=== PATIENT | female | born 1945 | race Caucasian/White ===

== ENCOUNTER → 2018-03-23 11:20 | Outpatient (CLI) | payer MEDICARE, OTHER, SELFPAY ==
--- NOTE | 2018-03-23 11:24 | DI.MRI.S_ITS ---
PROCEDURE: MR CERVICAL SPINE WO CON INDICATIONS: Cervical pain with Radiculopathy L arm TECHNIQUE: Noncontrast sagittal T1 spin echo and T2 fast spin echo, sagittal STIR, foraminal oblique sagittal T2 fast spin echo, and axial gradient echo or T2 fast spin echo through the cervical spine. COMPARISON: None. FINDINGS: Image quality: Excellent. Alignment and Curvature: There is trace retrolisthesis of C3 on C4, C5-C6. Bone Marrow: Marrow demonstrates normal overall signal. Trace reactive marrow changes at C5-6. Spinal Cord: Visualized spinal cord has normal size and signal. No cerebellar tonsillar herniation. Paraspinous Soft Tissues: No paravertebral masses. Prevertebral soft tissues are normal in thickness. Moderate dessication is present throughout the cervical spine. C2-C3: No disc bulge, spinal stenosis or foraminal narrowing. C3-C4: Mild disc bulge with mild to moderate spinal stenosis. Moderate right foraminal narrowing. Uncovertebral hypertrophy. C4-C5: Mild disc bulge with posterior central protrusion. Moderate spinal stenosis. Severe right and moderate left foraminal narrowing. Uncovertebral hypertrophy. C5-C6: Mild disc bulge with moderate spinal stenosis. Moderate bilateral foraminal narrowing. Uncovertebral hypertrophy. C6-C7: Mild disc bulge with mild to moderate spinal stenosis. Mild to moderate bilateral foraminal narrowing. Uncovertebral hypertrophy. C7-T1: No disc bulge, spinal stenosis or foraminal narrowing. IMPRESSION: 1. Multilevel degenerative changes. 2. Multilevel disc bulges with protrusion at C4-5. 3. Multilevel spinal stenosis, most severe at C3-4, C4-5, C5-6 secondary to disc bulges. 4. Multilevel foraminal narrowing, most severe at C4-5, secondary to uncovertebral arthropathy. Dictated by: Kamryn Borja M.D. on 03/23/2018 at 14:47 Approved by: Kamryn Borja M.D. on 03/23/2018 at 15:07
== END ==
PROVIDERS: PCP Physician Assistant; Visit Provider Physician Assistant
DX: M47.22 Other spondylosis with radiculopathy, cervical region (principal); M50.11 Cervical disc disorder with radiculopathy, high cervical region; M48.02 Spinal stenosis, cervical region; R20.2 Paresthesia of skin; M62.838 Other muscle spasm
CPT/HCPCS: 72141

== ENCOUNTER 2018-03-28 12:24 | Emergency (ER) | payer MEDICARE, OTHER, SELFPAY ==
[2018-03-28 12:42] VITALS: BP 153/66; PULSE 59; RESP 12; TEMP 36.7; O2SAT 97; BMI 22.4
--- NOTE | 2018-03-28 13:49 | ED.NEUROSD ---
HPI - Neuro Symptoms/Deficit General Chief Complaint: Neuro Symptoms/Deficit Stated Complaint: states buldging disc, left arm pain Time Seen by Provider: 03/28/18 13:01 Source: patient Mode of arrival: ambulatory Limitations: no limitations History of Present Illness HPI Narrative: Patient is a 73-year-old female who presents with acute on chronic neck pain. She actually had an MRI 5 days ago which showed mild disc bulging at multiple levels. She has chronic ongoing left arm weakness she usually gets these tingling sensations down her left arm. She has not had any fever. She just got a referral yesterday by her PCP [place]. Today she is here because her pain is out of control. She takes oxycodone multiple times a day but it is not working she took some Aleve last night as well. She says that she is on gabapentin. Onset (ago): unknown On Anticoagulants: Yes (ASA 81 mg qd) Related Data Home Medications Medication Instructions Recorded Confirmed Calcium 500 + D 150 mg PO QDAY #0 01/21/16 03/28/18 vitamin B complex 1 cap PO QWEEK #0 01/21/16 03/28/18 [GLUCO/CHOND/TURM/MSM] 1 tab PO DAILY #0 03/21/17 03/28/18 aspirin 81 mg PO QPM #0 03/21/17 03/28/18 ginkgo biloba 1 tab PO DAILY #0 03/21/17 03/28/18 carvedilol 3.125 mg tablet 3.125 mg PO BID tab 11/03/17 03/28/18 multivitamin tablet 1 tab PO DAILY 11/03/17 03/28/18 vitamin E mixed 400 unit capsule 400 unit PO DAILY cap 11/03/17 03/28/18 biotin 1,000 mcg chewable tablet 1,000 mcg PO 1200 03/21/18 03/28/18 atorvastatin [Lipitor] 10 mg PO BEDTIME 03/28/18 03/28/18 estradiol 0.25 mg PO DAILY 03/28/18 03/28/18 naproxen sodium [Aleve] 1 dose PO PRN PRN 03/28/18 03/28/18 tramadol 50 - 100 mg PO TID PRN 03/28/18 03/28/18 Previous Rx's Medication Instructions Recorded varicella-zoster glycoE vacc-[id number] 50 mcg IM ONCE #1 each 03/21/18 adj(PF) 50 mcg/0.5 mL IM susp, kit gabapentin 300 mg capsule 300 mg PO TID #90 cap 03/23/18 oxycodone-acetaminophen 5 mg-325 1 tab PO Q4-6H PRN #45 tab 03/26/18 mg tablet lidocaine 1 patch TOP .q24 #15 each 03/28/18 prednisone 40 mg PO DAILY #10 tab 03/28/18 Allergies Allergy/AdvReac Type Severity Reaction Status Date / Time morphine [MORPHINE] Allergy Severe VIOLENT HAs Verified 03/28/18 12:48 citalopram [CITALOPRAM] AdvReac Unknown PROLONGED Verified 03/28/18 12:48 QT INTERVAL Review of Systems Review of Systems GENERAL: Denies chills, fatigue, malaise, fever, sweats, travel HEENT: Denies sinus pain, ear pain, sore throat, difficulty swallowing, neck pain RESPIRATORY: Denies dyspnea, cough, wheezing, hemoptysis, sputum. CARDIOVASCULAR: Denies chest pain, palpitations, orthopnea, edema GASTROINTESTINAL: Denies nausea, vomiting, abdominal pain, diarrhea, constipation, melena. : Denies dysuria, frequency, incontinence, hematuria, urinary retention, flank pain. MUSCULOSKELETAL: Denies weakness, joint pain, or bony pain SKIN: No rash, no erythema, no pruritus NEUROLOGIC: Left arm weakness, tingling down left arm, see HPI PSYCHIATRIC: No concerning psychosocial issues. 12 point review of systems is negative except for those stated above and HPI PFSH Social History Smoking Status: Former smoker Tobacco: How many years used: 5 second hand exposure: No alcohol intake: current (two glasses of wine, once a week) substance use type: does not use Exam Initial Vital Signs Initial Vital Signs: Vital Signs Temperature 98.1 F 03/28/18 12:42 Pulse Rate 59 L 03/28/18 12:42 Respiratory Rate 12 03/28/18 12:42 Blood Pressure 153/66 H 03/28/18 12:42 Pulse Oximetry 97 03/28/18 12:42 GENERAL: Well-appearing, well-nourished and in no acute distress. HEENT: Head atraumatic,EOMI, pupils reactive CARDIOVASCULAR: Regular rate and rhythm without murmurs, rubs or gallops. RESPIRATORY: Breath sounds equal bilaterally, no wheezes rales or rhonchi. ABDOMEN: Soft, nontender. Normoactive bowel sounds all 4 quadrants. No guarding or rebound. EXTREMITIES: Normal range of motion, no clubbing or edema. Neurovascularly intact NEUROLOGICAL: Alert and oriented x4.Normal gait and speech. Cranial nerves II through XII grossly intact. Left arm weakness, radial median and ulnar nerves are intact. 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 Sensation is intact moving on hand and fingers and wrist without problem SKIN: Warm, dry, no laceration, no petechiae, no rashes or lesions. Course Orders Ordered: Discontinued Medications Hydromorphone HCl (Dilaudid) 1 mg SUBCUT Q4H PRN PRN Reason: Pain, Severe (7-10) Last Admin: 03/28/18 14:02 Dose: 1 mg Vital Signs - 8 hr 03/28/18 12:42 03/28/18 15:12 Temperature 98.1 F Pulse Rate 59 L Respiratory Rate 12 Blood Pressure 153/66 H 146/84 H Pulse Oximetry 97 MDM - Neuro Symptoms/Deficit Imaging Data MRI spine: Radiologist's impression: PROCEDURE: MR CERVICAL SPINE WO CON INDICATIONS: Cervical pain with Radiculopathy L arm TECHNIQUE: Noncontrast sagittal T1 spin echo and T2 fast spin echo, sagittal STIR, foraminal oblique sagittal T2 fast spin echo, and axial gradient echo or T2 fast spin echo through the cervical spine. COMPARISON: None. FINDINGS: Image quality: Excellent. Alignment and Curvature: There is trace retrolisthesis of C3 on C4, C5-C6. Bone Marrow: Marrow demonstrates normal overall signal. Trace reactive marrow changes at C5-6. Spinal Cord: Visualized spinal cord has normal size and signal. No cerebellar tonsillar herniation. Paraspinous Soft Tissues: No paravertebral masses. Prevertebral soft tissues are normal in thickness. Moderate dessication is present throughout the cervical spine. C2-C3: No disc bulge, spinal stenosis or foraminal narrowing. C3-C4: Mild disc bulge with mild to moderate spinal stenosis. Moderate right foraminal narrowing. Uncovertebral hypertrophy. C4-C5: Mild disc bulge with posterior central protrusion. Moderate spinal stenosis. Severe right and moderate left foraminal narrowing. Uncovertebral hypertrophy. C5-C6: Mild disc bulge with moderate spinal stenosis. Moderate bilateral foraminal narrowing. Uncovertebral hypertrophy. C6-C7: Mild disc bulge with mild to moderate spinal stenosis. Mild to moderate bilateral foraminal narrowing. Uncovertebral hypertrophy. C7-T1: No disc bulge, spinal stenosis or foraminal narrowing. IMPRESSION: 1. Multilevel degenerative changes. 2. Multilevel disc bulges with protrusion at C4-5. 3. Multilevel spinal stenosis, most severe at C3-4, C4-5, C5-6 secondary to disc bulges. 4. Multilevel foraminal narrowing, most severe at C4-5, secondary to uncovertebral arthropathy. Dictated by: Kamryn Borja M.D. on 03/23/2018 at 14:47 Approved by: Kamryn Borja M.D. on 03/23/2018 at 15:07 MDM Narrative Medical decision making narrative: Patient recently had an MRI shows mild disc bulging and some spinal stenosis. She has chronically left week arm which is unchanged according to her caregiver. Her pain is better after Dilaudid. She already has a referral into neuro surgery. At this time will try a short course of prednisone and lidocaine patches. She is already taking oxycodone more frequently than it is prescribed. Discharge Plan Departure Patient Disposition: Home Clinical Impression: Cervical radiculopathy Discharge Date/Time: 03/28/18 15:12 Interventions: ED Discharge Assessment Last Done: 03/28/18 15:12 Instructions: DI for Cervical Radiculopathy Activity Restrictions/Additional Instructions: *You have been diagnosed with cervical radiculopathy *What to do: Follow up with Neuro surgery in every *Continue to take medications as directed: FAXED TO [email or web address] [place] Lidocaine patch cut to size needed only wear for 12 hr at a time and then remove Prednisone 40 mg once a day for 5 days and then stop *Follow up with your primary care provider in 2-3 days *Return to ER if you should have FEVER, INCREASING WEAKNESS, WORSENING PAIN CHANGES IN BOWEL OR BLADDER HABITS or any new, worsening or concerning symptoms Prescriptions: New prednisone 20 mg tablet 40 mg PO DAILY Qty: 10 RF: 0 lidocaine 5 % adhesive patch,medicated 1 patch TOP .q24 Qty: 15 RF: 0 No Action biotin 1,000 mcg tablet,chewable 1,000 mcg PO 1200 RF: 0 varicella-zoster gE-AS01B (PF) [Shingrix (PF)] 50 mcg/0.5 mL suspension for reconstitution 50 mcg IM ONCE Qty: 1 RF: 1 Calcium 500 + D 150 mg PO QDAY Qty: 0 RF: 0 vitamin B complex Tablet Extended Release 1 cap PO QWEEK Qty: 0 RF: 0 [GLUCO/CHOND/TURM/MSM] 1 tab PO DAILY Qty: 0 RF: 0 ginkgo biloba 1 tab PO DAILY Qty: 0 RF: 0 aspirin 81 MG tablet,delayed release (DR/EC) 81 mg PO QPM Qty: 0 RF: 0 gabapentin 300 mg capsule 300 mg PO TID Qty: 90 RF: 1 oxycodone-acetaminophen 5-325 mg tablet 1 tab PO Q4-6H PRN (Reason: pain) Qty: 45 RF: 0 atorvastatin [Lipitor] 20 mg tablet 10 mg PO BEDTIME RF: 0 tramadol 50 mg tablet 50 - 100 mg PO TID PRN (Reason: pain) RF: 0 estradiol 0.5 MG tablet 0.25 mg PO DAILY RF: 0 naproxen sodium [Aleve] 220 mg Tablet 1 dose PO PRN PRN (Reason: pain) RF: 0 carvedilol 3.125 mg tablet 3.125 mg PO BID RF: 0 multivitamin tablet 1 tab PO DAILY RF: 0 vitamin E mixed 400 unit capsule 400 unit PO DAILY RF: 0 Referrals: Cris Heredia PA-C [Primary Care Provider] -
[2018-03-28] MEDS: HYDROMORPHONE 2 MG INJ 1 MG SUBCUT (14:02)
--- NOTE | 2018-03-28 15:10 | PC.NURSE ---
acute on chronic LUE pain, shooting, recent diag of cervical ridiculopathy, no recent injury, neuro exam unremarkable, c/o no relief from PRN pain medications
[2018-03-28 15:12] VITALS: BP 146/84
== END 2018-03-28 15:12 | disposition home or self-care (01) ==
PROVIDERS: Emergency Provider Emergency Medicine; PCP Physician Assistant
DX: M54.12 Radiculopathy, cervical region (principal)
CPT/HCPCS: 99282; J1170

== ENCOUNTER → 2018-06-19 10:28 | Outpatient (CLI) | payer MEDICARE, OTHER, SELFPAY ==
--- NOTE | 2018-06-19 10:31 | DI.MG.S_ITS ---
BILATERAL DIGITAL SCREENING MAMMOGRAM 3D/2D WITH CAD: 06/19/2018 CLINICAL: Routine screening. Comparison is made to exams dated: 06/02/2017 mammogram, 04/07/2016 mammogram, and 03/26/2015 mammogram - [facility]. The tissue of both breasts is heterogeneously dense. This may lower the sensitivity of mammography. Current study was also evaluated with a Computer Aided Detection (CAD) system. No significant masses, calcifications, or other findings are seen in either breast. There is a linear scar marker overlying the upper right breast. There has been no significant interval change. IMPRESSION: NEGATIVE There is no mammographic evidence of malignancy. A 1 year screening mammogram is recommended. This exam was interpreted at Station ID: [id number]. NOTE: For mammograms, a report in lay terms will be sent to the patient. Approximately 15% of breast malignancies will not be visualized mammographically. In the management of a palpable breast mass, a negative mammogram must not discourage biopsy of a clinically suspicious lesion. Electronically Signed By: Johnny Le M.D. ecl/:06/19/2018 17:42:21 letter sent: Normal Exam ACR BI-RADS Category 1: Negative [id number]
== END ==
PROVIDERS: PCP Physician Assistant; Visit Provider Physician Assistant
DX: Z12.31 Encounter for screening mammogram for malignant neoplasm of breast (principal)
CPT/HCPCS: 77063; 77067

== ENCOUNTER → 2021-05-28 11:03 | Outpatient (CLI) | payer MEDICARE, OTHER, SELFPAY ==
--- NOTE | 2021-05-28 | DI.RAD.S_ITS ---
PROCEDURE: XR DEXA AXIAL SKELETON INDICATIONS: Encounter for screening for osteoporosis COMPARISON: None. FINDINGS: This blank DEXA report has been sent in error by the PACS system. The correct and complete report will be forthcoming in 1-2 days. Thank you for your patience and understanding. Dictated by: Marcela Thomas MD, PhD on 05/28/2021 at 17:09 Approved by: Marcela Thomas MD, PhD on 05/28/2021 at 17:09
== END ==
PROVIDERS: PCP Physician Assistant; Referring Provider Physician Assistant; Visit Provider Physician Assistant
DX: Z13.820 Encounter for screening for osteoporosis; M85.852 Other specified disorders of bone density and structure, left thigh; Z78.0 Asymptomatic menopausal state; Z90.722 Acquired absence of ovaries, bilateral; Z87.891 Personal history of nicotine dependence
CPT/HCPCS: 77080

== ENCOUNTER → 2021-10-20 13:13 | Outpatient (CLI) | payer MEDICARE, OTHER, SELFPAY ==
--- NOTE | 2021-10-20 | DI.RAD.S_ITS ---
PROCEDURE: FL BARIUM SWALLOW INDICATIONS: Dysphagia, Heartburn COMPARISON: None. FINDINGS: Function: There is normal esophageal peristalsis. Gastroesophageal reflux noted which occurred without provocative maneuvers. Morphology: Air-contrast images demonstrate normal mucosal morphology. Persistent, focal, smooth eccentric narrowing in the upper thoracic esophagus Prominent B ring in the distal esophagus which impedes passage of 13 millimeter calibrated barium tablet. Single contrast views show no extrinsic mass effects, or diverticula. Limited images of the stomach demonstrate normal appearance. IMPRESSION: Focal, persistent, smooth eccentric narrowing of the upper thoracic esophagus which does not impede passage of 13 millimeter barium tablet. Recommend gastroenterology consultation for endoscopic evaluation. Prominent B ring in the distal esophagus which impedes passage of 13 millimeter barium tablet. Recommend gastroenterology consultation for endoscopy and potential biopsy. Dictated by: Marcela Thomas MD, PhD on 10/20/2021 at 15:47 Approved by: Marcela Thomas MD, PhD on 10/20/2021 at 15:52
== END ==
PROVIDERS: PCP Physician Assistant; Referring Provider Internal Medicine Gastroenterology; Visit Provider Internal Medicine Gastroenterology
DX: K22.2 Esophageal obstruction (principal); K21.9 Gastro-esophageal reflux disease without esophagitis; R13.10 Dysphagia, unspecified; R12 Heartburn
CPT/HCPCS: 74220

== ENCOUNTER → 2021-11-19 10:00 | Outpatient (CLI) | payer MEDICARE, OTHER, SELFPAY ==
[2021-11-19 11:16] LABS: COVID19 -Nasal RAPID Negative (Negative)
== END ==
PROVIDERS: PCP Physician Assistant; Visit Provider Surgery
DX: Z20.822 Contact with and (suspected) exposure to COVID-19 (principal); Z01.812 Encounter for preprocedural laboratory examination
CPT/HCPCS: 87635; C9803

== ENCOUNTER 2021-11-22 09:53 | Day surgery (SDC) | payer MEDICARE, OTHER, SELFPAY ==
[2021-11-22] VITALS (7 sets, daily range): BP systolic 103–176; BP diastolic 36–70; PULSE 51–65; RESP 13–21; TEMP 36–36.8; O2SAT 94–99; BMI 22.8
--- NOTE | 2021-11-22 | PATH_ITS ---
[facility] Accession Number: [id number] . 01 Material submitted: . PART A: gastrointestinal site - GASTRIC BODY ULCER PART B: esophagus, E-G Junction - GE JUNCTION . 01 Diagnosis: A. Stomach, Body Ulcer, Biopsy: Body type mucosa with mild chronic gastritis and reactive changes suggestive of nearby erosion. Negative for Helicobacter by immunohistochemistry. Negative for intestinal metaplasia. Negative for dysplasia and malignancy. . B. 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 Negative for dysplasia and malignancy. [facility] 11/25/2021 1229 Local . 01 Electronically signed: . Macey Duran MD, Pathologist NPI- [id number] . 01 Gross description: . Part A: GASTRIC BODY ULCER: Received in formalin are 2 fragment(s) of patel, soft tissue measuring 0.2 x 0.2 x 0.1 cm to 0.1 x 0.1 x 0.1 cm submitted entirely in 1 cassette(s) Part B: GE JUNCTION: Received in formalin are 3 fragment(s) of patel, soft tissue measuring 0.3 x 0.2 x 0.1 cm to 0.2 x 0.1 x 0.1 cm submitted entirely in 1 cassette(s) /CPE 11/23/2021 0501 Local . 01 Microscopic: . A. An immunohistochemical stain was performed to evaluate for Helicobacter organisms and is negative. The control stain showed appropriate reactivity. * This test was developed and its performance characteristics determined by [facility] [facility]. It has not been cleared or approved by the U.S. Food and Drug Administration. The FDA has determined that such clearance or approval is not necessary. This test is used for clinical purposes. It should not be regarded as investigational or for research. . 01 Pathologist provided ICD-10: K22.70 . 01 CPT . 952433, 130139, R03566 Specimen Comment: A courtesy copy of this report has been sent to [phone] Performed at: [address] [id number] MD [place]ico Vega MD Phone: [phone]
[2021-11-22] MEDS: SODIUM CHLORIDE 0.9% 1,000 ML 84 ML IV (10:26)
--- NOTE | 2021-11-22 10:59 | PM.HP.1 ---
History of Present Illness History of Present Illness Date Patient Seen: 11/22/21 Time Patient Seen: 10:59 Chief complaint: SDC Narrative: I reviewed my recent clinic note. Reviewed the barium swallow findings. No significant changes since then. Patient History Family & Social History Social History: household members none Tobacco & Substance use: Smoking Status Former smoker alcohol intake current alcohol intake frequency 0-2 drinks per day Substance Use Type does not use Meds Home Medications and Allergies Home Medications Medication Instructions Recorded Confirmed Type Calcium 500 + D 150 mg PO QDAY ##0 01/21/16 11/22/21 History vitamin B complex 1 cap PO QWEEK ##0 01/21/16 03/28/18 History [GLUCO/CHOND/TURM/MSM] 1 tab PO DAILY ##0 03/21/17 11/22/21 History multivitamin 1 tab PO DAILY 11/03/17 11/22/21 History vitamin E mixed 400 unit capsule 400 unit PO DAILY 11/03/17 04/08/19 History varicella-zoster glycoE vacc-AS01B 50 mcg IM ONCE #1 ea 03/21/18 11/22/21 Rx adj(PF) 50 mcg/0.5 mL IM susp, kit (Shingrix (PF)) estradiol 0.5 mg tablet 0.25 mg PO DAILY #45 tabs 03/19/19 11/22/21 Rx atorvastatin 20 mg tablet (Lipitor) 10 mg PO BEDTIME #90 tabs 04/08/19 11/22/21 Rx diltiazem HCl 120 mg 120 mg PO DAILY #90 caps 04/15/19 11/22/21 Rx capsule,extended release 24 hr Allergies Allergy/AdvReac Type Severity Reaction Status Date / Time morphine [MORPHINE] Allergy Severe VIOLENT HAs Verified 11/22/21 10:02 citalopram [CITALOPRAM] AdvReac Unknown PROLONGED Verified 11/22/21 10:02 QT INTERVAL Review of Systems Review of Systems ROS: Yes All systems reviewed with the patient and are negative except as otherwise documented Exam Vital Signs (past 8 hours): - 11/22/21 10:16 Temperature 98.3 F Pulse Rate 59 L Respiratory Rate 16 Blood Pressure 176/70 H Pulse Oximetry 98 Oxygen Delivery Method Room Air Oxygen Delivery Method Room Air Const General: cooperative HENMT Head: normal to inspection Eyes General: appearance normal, both eyes and all related structures Neck Neck: normal visual inspection Chest Chest: normal inspection of the chest Resp Effort & Inspection: normal respiratory effort Cardio Rate: regular rate GI Inspection: normal to inspection Skin General: no rashes or lesions noted Neuro General: patient alert and patient awake Extrem General: normal to inspection and no pedal edema Psych Appearance: grossly normal Assessment & Plan Assessment & Plan narrative: 76-year-old female with an abnormal barium swallow. She has 6 months of intermittent dysphagia and heartburn. She is responding nicely to an H2 receptor antagonist. Diagnostic and potentially therapeutic EGD is pursued today. Time Spent With Patient Critical Care time: I spent a total of [] minutes of critical care time on this patient's care today; this time is exclusive of procedural time.
--- NOTE | 2021-11-22 11:01 | PM.PREOP ---
Pre-operative Note COVID-19 COVID-19 status: Negative Result date/Date tested (Pos, Neg/Pending): 11/19/21 Criteria for continued procedure: Possibility delay results in more complex future surgery or treatment Interval Note History & Physical reviewed/Exam performed by Physician: Yes Changes to H&P: No ASA Class (for procedural sedation): II
--- NOTE | 2021-11-22 11:30 | PM.OP.EGD ---
Operative Date/Time/Diagnoses Date of procedure: 11/22/21 Time of procedure: 11:30 Pre-op diagnosis: Dysphagia abnormal barium esophagram Post-op diagnosis: same Procedure & Clinicians Study performed: EGD with biopsies and balloon dilatation Same procedure as scheduled: Yes Indications: Dysphagia and an abnormal barium esophagram Surgeon: Jairo Sosa Procedure Notes SCOAP/Timeout: Done Procedure in detail: After the risks and benefits were explained, written and verbal informed consent was obtained. The patient was brought into the procedure room and placed into the left lateral decubitus position. Please see nurse recording studio internship notes for sedation details. The scope was introduced into the mouth through the bite block and advanced under direct visualization to the 2nd portion of the duodenum. The scope was slowly withdrawn carefully examining the mucosa for any defects or lesions. Retroflexed views were accomplished in the stomach. The stomach was decompressed, the scope was then removed from the patient who tolerated the procedure well. Sedation minutes: 24 Complications: none Impression: 1. Duodenum: This was visually normal from the bulb through the 2nd portion. 2. Stomach: No evidence of any outlet obstruction. The patient had some subtle erosive features in the distal body proximal antrum. There was 1 superficial linear ulcer that perhaps measured about 7-8 mm in length 1-2 mm in width located in the distal body along the lesser curve. I suspect this is an aspirin induced mucosal injury but took biopsies from the edge of the ulcer for exclusion of Helicobacter or other pathology. Otherwise retroflexed views of the LES were unremarkable. 3. Esophagus: The squamocolumnar junction generally seem to correlate with the top of the gastric folds. The GEJ was at roughly 35 cm from the incisors and the diaphragmatic pinchcock was at about 37 cm from the incisors. There were some subtle erosive features identified. This would be consistent with LA grade B erosive esophagitis. When I 1st approached the GE junction there was obvious mild stenosis. The diameter of the GE junction was roughly the diameter of the scope. We were just barely able to advance through into stomach. I therefore elected to perform balloon dilatation of the GE junction using a 12 to 15 mm balloon over the guidewire. We held the balloon at the 12 mm setting for roughly 45 seconds. The balloon was held at the 13.5 and 15 mm setting for about a minute each. Following the dilatation there was an obvious mild rent in a couple of locations at the mild stenosis at GE junction consistent with effective dilatation. I additionally elected to pursue disruptive biopsies through this location with cold forceps. The specimens were sent for pathology review. The remainder of the esophagus was visually unremarkable with the exception of a long inlet patch just below the UES. Endoscopic diagnosis 1. Small sliding hiatal hernia 2. LA grade B erosive esophagitis 3. 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 Superficial small gastric ulceration-biopsied Post-procedure Plan for aftercare: 1. Await histopathology. 2. Patient is encouraged to initiate a more proactive anti-reflux approach with daily Pepcid. 3. Follow up in GI clinic in approximately 6 weeks to review response to today's interventions. Disposition: PACU
--- NOTE | 2021-11-22 12:08 | SUR.PHASEII ---
pt given discharge instructions. pt states she understands discharge instructions. Pt to be discharged with her friend.
== END 2021-11-22 12:10 | disposition home or self-care (01) ==
PROVIDERS: PCP Physician Assistant; Referring Provider Internal Medicine Gastroenterology; Visit Provider Internal Medicine Gastroenterology
PROC: 0DJ08ZZ Inspection of Upper Intestinal Tract, Via Natural or Artificial Opening Endoscopic (ICD-10-PCS; CPT 43235; principal; 2021-11-22 10:30)
DX: R13.10 Dysphagia, unspecified (principal); K22.2 Esophageal obstruction; K44.9 Diaphragmatic hernia without obstruction or gangrene; K25.9 Gastric ulcer, unspecified as acute or chronic, without hemorrhage or perforation; K20.90 Esophagitis, unspecified without bleeding; K29.50 Unspecified chronic gastritis without bleeding; K22.70 Barrett's esophagus without dysplasia
CPT/HCPCS: 43249; 43239; J2704

== ENCOUNTER 2022-02-21 10:26 | Day surgery (SDC) | payer MEDICARE, OTHER, SELFPAY ==
--- NOTE | 2022-02-21 | PATH_ITS ---
[facility] Accession Number: [id number] . 01 Material submitted: . PART A: gastrointestinal site - GASTRIC BODY PART B: esophagus, E-G Junction - GE JUNCTION . 01 Diagnosis: A. Gastric Body: Portions of gastric body-type mucosa with mild chronic gastritis. Negative for Helicobacter organisms by immunohistochemistry. Negative for intestinal metaplasia. Negative for dysplasia or malignancy. . B. Gastroesophageal Junction: Columnar mucosa with involvement by specialized intestinal metaplasia, consistent with Macario's esophagus. Negative for dysplasia or malignancy. No squamous mucosa identified for evaluation. MRV 02/24/2022 1708 Local . 01 Electronically signed: . Daina Banks MD, Pathologist NPI- [id number] . 01 Gross description: . Part A: GASTRIC BODY: Received in formalin are 2 fragment(s) of patel, soft tissue measuring 0.1 x 0.1 x 0.1 cm to 0.2 x 0.2 x 0.1 cm submitted entirely in 1 cassette(s) Part B: GE JUNCTION: Received in formalin is 1 fragment(s) of patel, soft tissue measuring 0.1 x 0.1 x 0.1 cm submitted entirely in 1 cassette(s) /VON 02/22/2022 2226 Local . 01 Microscopic: . A. An immunohistochemical stain was performed to evaluate for Helicobacter organisms and is negative. The control stain showed appropriate reactivity. . * This test was developed and its performance characteristics determined by [facility]. It has not been cleared or approved by the U.S. Food and Drug Administration. The FDA has determined that such clearance or approval is not necessary. This test is used for clinical purposes. It should not be regarded as investigational or for research. . 01 Pathologist provided ICD-10: K29.70, K22.70 . 01 CPT . 415356, 975824, [id number] Specimen Comment: A courtesy copy of this report has been sent to [phone] Performed at: 01 [facility] [address] [place] [address] [id number] MD Chico Vega MD Phone: [phone]
--- NOTE | 2022-02-21 10:53 | PM.HP.1 ---
History of Present Illness History of Present Illness Date Patient Seen: 02/21/22 Time Patient Seen: 10:53 Chief complaint: SDC Narrative: I reviewed my recent office note from December. She denies dysphagia. Doing well with the Pepcid. Patient History Family & Social History Social History: household members none Tobacco & Substance use: Smoking Status Former smoker alcohol intake current alcohol intake frequency 0-2 drinks per day Substance Use Type does not use Meds Home Medications and Allergies Home Medications Medication Instructions Recorded Confirmed Type Calcium 500 + D 150 mg PO QDAY ##0 01/21/16 02/21/22 History [GLUCO/CHOND/TURM/MSM] 1 tab PO DAILY ##0 03/21/17 02/21/22 History multivitamin 1 tab PO DAILY 11/03/17 02/21/22 History vitamin E mixed 400 unit capsule 400 unit PO DAILY 11/03/17 04/08/19 History varicella-zoster glycoE [id number] 50 mcg IM ONCE #1 ea 03/21/18 11/22/21 Rx adj(PF) 50 mcg/0.5 mL IM susp, kit (Shingrix (PF)) estradiol 0.5 mg tablet 0.25 mg PO DAILY #45 tabs 03/19/19 02/21/22 Rx atorvastatin 20 mg tablet (Lipitor) 10 mg PO BEDTIME #90 tabs 04/08/19 02/21/22 Rx diltiazem HCl 120 mg 120 mg PO DAILY #90 caps 04/15/19 02/21/22 Rx capsule,extended release 24 hr Allergies Allergy/AdvReac Type Severity Reaction Status Date / Time morphine [MORPHINE] Allergy Severe VIOLENT HAs Verified 02/21/22 10:44 citalopram [CITALOPRAM] AdvReac Unknown PROLONGED Verified 02/21/22 10:44 QT INTERVAL Review of Systems Review of Systems ROS: Yes All systems reviewed with the patient and are negative except as otherwise documented Exam Const General: cooperative HENMT Head: normal to inspection Eyes General: appearance normal, both eyes and all related structures Neck Neck: normal visual inspection Chest Chest: normal inspection of the chest Resp Effort & Inspection: normal respiratory effort Cardio Rate: regular rate GI Inspection: normal to inspection Skin General: no rashes or lesions noted Neuro General: patient alert and patient awake Extrem General: normal to inspection and no pedal edema Psych Appearance: grossly normal Assessment & Plan Assessment & Plan narrative: 77-year-old female with a history of nondysplastic Macario's, erosive esophagitis, dysphagia. Overall dramatically improved. Surveillance EGD for repeat biopsies and possible repeat dilatation is pursued today. Time Spent With Patient Critical Care time: I spent a total of [] minutes of critical care time on this patient's care today; this time is exclusive of procedural time.
--- NOTE | 2022-02-21 10:55 | PM.PREOP ---
Pre-operative Note COVID-19 COVID-19 status: Negative Result date/Date tested (Pos, Neg/Pending): 02/21/22 Criteria for continued procedure: Possibility delay results in more complex future surgery or treatment Interval Note History & Physical reviewed/Exam performed by Physician: Yes Changes to H&P: Yes ASA Class (for procedural sedation): II
[2022-02-21 11:00] VITALS: BP 172/75; PULSE 70; RESP 16; TEMP 36.6; O2SAT 99; BMI 23.0
[2022-02-21] MEDS: LACTATED RINGERS 1,000 ML 42 ML IV (11:07)
[2022-02-21 11:24] LABS: COVID19 -Nasal RAPID Negative (Negative)
--- NOTE | 2022-02-21 11:54 | P.OP.EGD_ITS ---
Operative Date/Time/Diagnoses Date of procedure: 02/21/22 Time of procedure: 11:54 Pre-op diagnosis: Esophagitis, Barretts, history of dysphagia Post-op diagnosis: same Procedure & Clinicians Study performed: EGD with balloon dilatation and biopsies Same procedure as scheduled: Yes Indications: Esophagitis, Barretts, history of dysphagia Surgeon: Jairo Sosa Procedure Notes SCOAP/Timeout: Done Procedure in detail: After the risks and benefits were explained, written and verbal informed consent was obtained. The patient was brought into the procedure room and placed into the left lateral decubitus position. Please see nurse packaging assembler notes for sedation details. The scope was introduced into the mouth through the bite block and advanced under direct visualization to the 2nd portion of the duodenum. The scope was slowly withdrawn carefully examining the mucosa for any defects or lesions. Retroflexed views were accomplished in the stomach. The stomach was decompressed, the scope was then removed from the patient who tolerated the procedure well. Sedation minutes: 19 Complications: none Impression: 1. Duodenum: This was normal from the bulb through to the 2nd portion. 2. Stomach: No outlet obstruction. No ulcers no mass lesions. There was however persistent superficial erosive change noted in the proximal gastric body and I repeated biopsies from this area. Otherwise retroflexed views of the LES disclosed small sliding hiatal hernia. 3. Esophagus: The squamocolumnar junction correlated with the top of the gastric folds for the most part. GEJ was at about 34 cm from the incisors. There was an approximately 2 cm sliding hiatal hernia. The previously noted erosive esophagitis had completely healed. I did not appreciate any residual obvious stricturing or stenosis. However considering the fact that historically we only dilated up to 15 mm and there is desire in primary care to consider oral anti osteoporosis therapy I elected to attempt to dilate up to 18 empirically with the balloon catheter. Starting at 15 mm then 16.5 and finally 18 mm I held the balloon at these diameters for approximately 1 minute each. At the end of the dilatation effort, there was only a mild rent in the mucosa consistent with mild dilatation effect. I repeated a biopsy at the GE junction since the Z-line was slightly variable to clarify whether or not there is or is not specialized intestinal metaplasia present. Endoscopic diagnosis 1. Proximal erosive gastropathy 2. Small hiatal hernia 3. Healed esophagitis 4. Empiric GE junction dilatation 5. Mildly irregular [id number] Post-procedure Plan for aftercare: 1. Await histopathology 2. Continue anti-reflux therapy with Pepcid 3. Surveillance EGD will be contingent on histopathologic findings. Disposition: PACU
[2022-02-21 12:01] VITALS: BP 118/53; PULSE 62; RESP 16; TEMP 36.6; O2SAT 96
[2022-02-21 12:04] VITALS: BP 108/37; PULSE 58; RESP 18; O2SAT 95
[2022-02-21 12:07] VITALS: BP 103/52; PULSE 57; RESP 18; O2SAT 96
[2022-02-21 12:14] VITALS: BP 117/48; PULSE 59; RESP 16; TEMP 36.3; O2SAT 97
[2022-02-21 12:35] VITALS: BP 126/56; PULSE 50; RESP 14; TEMP 36.3; O2SAT 97
== END 2022-02-21 12:35 | disposition home or self-care (01) ==
PROVIDERS: PCP Physician Assistant; Referring Provider Internal Medicine Gastroenterology; Visit Provider Internal Medicine Gastroenterology
PROC: 0DJ08ZZ Inspection of Upper Intestinal Tract, Via Natural or Artificial Opening Endoscopic (ICD-10-PCS; CPT 43235; principal; 2022-02-21 11:30)
DX: K31.9 Disease of stomach and duodenum, unspecified (principal); K22.70 Barrett's esophagus without dysplasia; Z20.822 Contact with and (suspected) exposure to COVID-19; K44.9 Diaphragmatic hernia without obstruction or gangrene; K29.50 Unspecified chronic gastritis without bleeding
CPT/HCPCS: 43249; 43239; 87635; C9803; J2704

== ENCOUNTER → 2022-09-23 08:07 | Outpatient (CLI) | payer MEDICARE, OTHER, SELFPAY ==
[2022-09-23 08:37] LABS: Alanine Aminotransferase 22 IU/L (<35); Albumin 4.2 g/dL (3.5-5.0); Albumin Globulin Ratio 1.6 (1.0-2.8); Alkaline Phosphatase 44 U/L (38-126); Aspartate Aminotransferase 28 IU/L (14-36); BUN Creatinine Ratio 14.9 (6-22); Bilirubin Total 0.4 mg/dL (0.2-1.3); Blood Urea Nitrogen 11 mg/dL (7-17); Carbon Dioxide 31 mmol/L (22-32); Chloride 105 mmol/L (98-107); Cholesterol 137 mg/dL (140-199); Estimated Glomerular Filt Rate > 60 mL/min (>60); Globulin 2.7 g/dL (1.7-4.1); Glucose 100 mg/dL (80-110); HDL Cholesterol 52 mg/dL (40-60); HEMOLYSIS < 15 (0-50); LDL Cholesterol Calculated 70 mg/dL (<100); Sodium 141 mmol/L (137-145); Total Protein 6.9 g/dL (6.3-8.2); Triglycerides 75 mg/dL (35-150)
== END ==
PROVIDERS: PCP Registered Nurse Diabetes Educator; Referring Provider Registered Nurse Diabetes Educator; Visit Provider Registered Nurse Diabetes Educator
DX: E78.5 Hyperlipidemia, unspecified (principal); I47.1 Supraventricular tachycardia; I10 Essential (primary) hypertension
CPT/HCPCS: 36415; 80053; 80061

== ENCOUNTER → 2023-03-23 16:12 | Outpatient (CLI) | payer MEDICARE, OTHER, SELFPAY ==
[2023-03-23 17:54] LABS: Add Manual Diff / Slide Review NO; Basophils Absolute Auto 0 /uL (0-100); Basophils Percent Auto 0.2 % (0-2); Eosinophils Absolute Auto 0 /uL (0-450); Hemoglobin 12.6 g/dL (12.0-16.0); Lymphocytes Absolute Auto 2000 /uL (1100-4500); Lymphocytes Percent Auto 17.4 % (25-40); Mean Corpuscular HGB Conc 33.2 % (30-36); Mean Corpuscular Hemoglobin 29.1 PG (26-34); Mean Corpuscular Volume 87.6 fL (80-100); Monocytes Absolute Auto 400 /uL (0-900); Monocytes Percent Auto 3.4 % (3-14); Neutrophils Absolute Auto 9200 /uL (1500-7000); Platelet Count 379 X10^3/uL (150-400); Red Blood Cell Count 4.34 X10^6/uL (4.0-5.2); Red Cell Distribution Width 14.8 % (11.6-14.8); White Blood Cell Count 11.6 X10^3/uL (4.5-11.0)
[2023-03-23 18:10] LABS: Appearance Urine UA CLEAR; Bilirubin Urine UA NEGATIVE (NEGATIVE); Color Urine UA YELLOW; Glucose Urine UA NEGATIVE (Negative); Ketones Urine UA NEGATIVE (NEGATIVE); Leukocyte Esterase Urine UA NEGATIVE (NEGATIVE); Nitrite Urine UA NEGATIVE (Negative); Occult Blood Urine UA NEGATIVE (Negative); Protein Urine UA NEGATIVE (Negative); Specific Gravity Urine UA <=1.005 (1.000-1.035); Urobilinogen Urine UA 0.2 E.U./dL (0.2)
[2023-03-23 18:22] LABS: pH Urine UA 6.5 (4.5-8.0)
[2023-03-23 18:27] LABS: Alanine Aminotransferase 30 IU/L (<35); Albumin 4.4 g/dL (3.5-5.0); Albumin Globulin Ratio 1.3 (1.0-2.8); Alkaline Phosphatase 62 U/L (38-126); Aspartate Aminotransferase 34 IU/L (14-36); BUN Creatinine Ratio 27.8 (6-22); Bilirubin Total 0.5 mg/dL (0.2-1.3); Blood Urea Nitrogen 20 mg/dL (7-17); C-Reactive Protein Quant 1.1 mg/dL (<1.0); Calcium 10.2 mg/dL (8.4-10.2); Carbon Dioxide 28 mmol/L (22-32); Chloride 103 mmol/L (98-107); Creatine Kinase 103 U/L (30-135); Estimated Glomerular Filt Rate > 60 mL/min (>60); Globulin 3.5 g/dL (1.7-4.1); Glucose 119 mg/dL (80-110); HEMOLYSIS < 15 (0-50); Potassium 3.8 mmol/L (3.4-5.1); Sodium 138 mmol/L (137-145); Total Protein 7.9 g/dL (6.3-8.2)
[2023-03-23 18:29] LABS: Erythrocyte Sedimentation Rate 33 MM/HR (0-20)
[2023-03-23 18:31] LABS: Bacteria Urine None Seen; Culture Indicated Urine Cult Not Indicated; RBC Urine None Seen (0-5/HPF); Squamous Epithelial Cell Urine None Seen (0-5/HPF); WBC Urine None Seen (0-5/HPF)
[2023-03-23 18:36] LABS: Free T4, Direct Thyroxine 0.99 ng/dL (0.78-2.19)
[2023-03-23 18:38] LABS: Rheumatoid Factor < 8.6 IU/mL (<12.0)
[2023-03-23 18:50] LABS: Thyroid Stimulating Hormone 0.024 uIU/mL (0.47-4.68)
[2023-03-28 16:41] LABS: ANA Screen, IFA Negative (.)
[2023-03-28 20:10] LABS: CCP Antibodies IgG/IgA 8 units (0-19)
== END ==
PROVIDERS: PCP Registered Nurse Diabetes Educator; Referring Provider Registered Nurse Diabetes Educator; Visit Provider Registered Nurse Diabetes Educator
DX: M35.3 Polymyalgia rheumatica (principal); M79.10 Myalgia, unspecified site; M25.50 Pain in unspecified joint; R53.83 Other fatigue
CPT/HCPCS: 36415; 80053; 81001; 82550; 84439; 84443; 85025; 85651; 86038; 86140; 86200; 86430

== ENCOUNTER → 2023-05-09 13:04 | Outpatient (CLI) | payer MEDICARE, OTHER, SELFPAY ==
[2023-05-09 14:44] LABS: Alanine Aminotransferase 29 IU/L (<35); Albumin 3.9 g/dL (3.5-5.0); Albumin Globulin Ratio 1.3 (1.0-2.8); Alkaline Phosphatase 43 U/L (38-126); Aspartate Aminotransferase 30 IU/L (14-36); BUN Creatinine Ratio 18.8 (6-22); Bilirubin Total 0.5 mg/dL (0.2-1.3); Blood Urea Nitrogen 13 mg/dL (7-17); C-Reactive Protein Quant 0.6 mg/dL (<1.0); Calcium 10.6 mg/dL (8.4-10.2); Carbon Dioxide 33 mmol/L (22-32); Chloride 100 mmol/L (98-107); Cholesterol 140 mg/dL (140-199); Estimated Glomerular Filt Rate > 60 mL/min (>60); Glucose 91 mg/dL (80-110); HDL Cholesterol 72 mg/dL (40-60); HEMOLYSIS < 15 (0-50); LDL Cholesterol Calculated 45 mg/dL (<100); Potassium 3.8 mmol/L (3.4-5.1); Sodium 138 mmol/L (137-145); Total Protein 6.9 g/dL (6.3-8.2); Triglycerides 114 mg/dL (35-150)
[2023-05-09 14:51] LABS: Erythrocyte Sedimentation Rate 10 MM/HR (0-20)
[2023-05-09 15:11] LABS: TSH w/ Reflex to FT4 < 0.02 uIU/mL (0.47-4.68)
[2023-05-09 15:37] LABS: Free T4, Direct Thyroxine 1.01 ng/dL (0.78-2.19)
== END ==
PROVIDERS: PCP Registered Nurse Diabetes Educator; Referring Provider Registered Nurse Diabetes Educator; Visit Provider Registered Nurse Diabetes Educator
DX: E78.5 Hyperlipidemia, unspecified (principal); Z51.81 Encounter for therapeutic drug level monitoring; M35.3 Polymyalgia rheumatica; R79.89 Other specified abnormal findings of blood chemistry; R53.83 Other fatigue; I47.19 Other supraventricular tachycardia
CPT/HCPCS: 36415; 80053; 80061; 84439; 84443; 85651; 86140

== ENCOUNTER → 2023-05-24 11:19 | Outpatient (CLI) | payer MEDICARE, OTHER, SELFPAY ==
[2023-05-24 12:38] LABS: BUN Creatinine Ratio 16.4 (6-22); Blood Urea Nitrogen 12 mg/dL (7-17); Calcium 10.6 mg/dL (8.4-10.2); Carbon Dioxide 30 mmol/L (22-32); Chloride 102 mmol/L (98-107); Estimated Glomerular Filt Rate > 60 mL/min (>60); Glucose 80 mg/dL (80-110); HEMOLYSIS < 15 (0-50); Potassium 3.9 mmol/L (3.4-5.1); Sodium 138 mmol/L (137-145)
[2023-05-24 12:51] LABS: Free T3, Triiodothyronine Free 3.35 pg/mL (2.77-5.27); Free T4, Direct Thyroxine 1.05 ng/dL (0.78-2.19)
[2023-05-24 13:05] LABS: Thyroid Stimulating Hormone 1.67 uIU/mL (0.47-4.68)
[2023-05-24 18:27] LABS: Vitamin D 25 Hydroxy (D3) 42.6 ng/mL (30.0-100.0)
[2023-05-26 09:47] LABS: Calcium 10.4 mg/dL (8.7-10.3); Parathyroid Hormone, Intact 12 pg/mL (15-65)
[2023-06-07 06:09] LABS: 1,25-Dihydroxy, Vitamin D-2 <10 pg/mL (.)
== END ==
PROVIDERS: PCP Registered Nurse Diabetes Educator; Referring Provider Registered Nurse Diabetes Educator; Visit Provider Registered Nurse Diabetes Educator
DX: M85.80 Other specified disorders of bone density and structure, unspecified site (principal); E83.52 Hypercalcemia; R79.89 Other specified abnormal findings of blood chemistry
CPT/HCPCS: 36415; 80048; 82306; 82310; 82652; 83970; 84439; 84443; 84481

== ENCOUNTER → 2023-06-08 10:38 | Outpatient (CLI) | payer MEDICARE, OTHER, SELFPAY ==
[2023-06-09 19:42] LABS: Ionized Calcium 5.3 mg/dL (4.5-5.6)
== END ==
PROVIDERS: PCP Registered Nurse Diabetes Educator; Referring Provider Registered Nurse Diabetes Educator; Visit Provider Registered Nurse Diabetes Educator
DX: E83.52 Hypercalcemia (principal)
CPT/HCPCS: 36415; 82330; 82397

== ENCOUNTER → 2023-08-10 11:26 | Outpatient (CLI) | payer MEDICARE, OTHER, SELFPAY ==
--- NOTE | 2023-08-10 11:27 | DI.RAD.S_ITS ---
PROCEDURE: XR HIP W PEL IF DONE RT 2V INDICATIONS: pain with radiating down leg x 2 mos TECHNIQUE: AP pelvis with lateral view(s) of the right hip(s). COMPARISON: None. FINDINGS: Bones: No fractures or dislocations. Mild bilateral hip joint degeneration with joint space narrowing and mild marginal spurring. Degenerative changes of the visualized lower lumbar spine and pubic symphysis. Pelvic ring appears intact. No suspicious bony lesions. Soft tissues: The visualized bowel gas pattern is normal. No suspicious soft tissue calcifications. IMPRESSION: Mild degenerative changes of the bilateral hips. No acute osseous abnormalities. Dictated by: Curtis Chung M.D. on 08/10/2023 at 12:45 Approved by: Curtis Chung M.D. on 08/10/2023 at 12:45
== END ==
PROVIDERS: PCP Registered Nurse Diabetes Educator; Referring Provider Physician Assistant; Visit Provider Physician Assistant
DX: M16.0 Bilateral primary osteoarthritis of hip (principal); M25.551 Pain in right hip
CPT/HCPCS: 73502

== ENCOUNTER → 2023-08-18 10:40 | Outpatient (CLI) | payer MEDICARE, OTHER, SELFPAY ==
--- NOTE | 2023-08-18 10:44 | DI.RAD.S_ITS ---
PROCEDURE: XR DEXA AXIAL SKELETON INDICATIONS: osteopenia, screening COMPARISON: [facility], , XR DEXA AXIAL SKELETON, 05/28/2021, 11:36. FINDINGS: Lumbar Spine: Bone mineral density 1.234 g/cm2, T score 1.6, normal. Left Hip: Bone mineral density 0.694 g/cm2, T score -2.0, osteopenia. Left Femoral Neck: Bone mineral density 0.588 g/cm2, T score -2.3, osteopenia. Right Hip: Bone mineral density 0.719 g/cm2, T score -1.8, osteopenia. Right Femoral Neck: Bone mineral density 0.598 g/cm2, T score -2.3, osteopenia. Fracture Risk Calculation (when applicable): 10-year fracture risk of a major osteoporotic fracture 30% and of a hip fracture 12%. (T score greater or equal to -1.0 to: NORMAL) (T score from -1.1 to -2.4: OSTEOPENIA) (T score less than or equal to -2.5: OSTEOPOROSIS) Comparison to last exam: Since the exams were performed with dissimilar scan types, statistical analysis cannot be performed. IMPRESSION: Based on WHO criteria, the patient has osteopenia and increased risk for osteoporotic fractures. Follow-up guidelines as follows: Osteoporosis: Consider a repeat DEXA and Vertebral Fracture Assessment (VFA) exam in 2 years or sooner if medically necessary, to reassess this patient's status. Osteopenia: Consider a repeat DEXA in 2-3 years to reassess this patient's status, or if there is a new clinical indication. Normal: Consider a repeat DEXA in 5 years or sooner, or if there is a new clinical indication. Dictated by: Rocco Sánchez M.D. on 08/18/2023 at 12:34 Approved by: Rocco Sánchez M.D. on 08/18/2023 at 12:46
== END ==
LOC: RAD 10:40
PROVIDERS: PCP Registered Nurse Diabetes Educator; Referring Provider Physician Assistant; Visit Provider Physician Assistant
DX: M85.89 Other specified disorders of bone density and structure, multiple sites (principal)
CPT/HCPCS: 77080

== ENCOUNTER → 2023-09-02 09:08 | Outpatient (CLI) | payer MEDICARE, OTHER, SELFPAY ==
[2023-09-02 10:06] LABS: Add Manual Diff / Slide Review NO; Basophils Absolute Auto 100 /uL (0-100); Basophils Percent Auto 1.1 % (0-2); Eosinophils Absolute Auto 300 /uL (0-450); Eosinophils Percent Auto 4.4 % (2-4); Hematocrit 35.1 % (36-46); Hemoglobin 11.8 g/dL (12.0-16.0); Lymphocytes Absolute Auto 2300 /uL (1100-4500); Mean Corpuscular HGB Conc 33.8 % (30-36); Mean Corpuscular Hemoglobin 30.8 PG (26-34); Mean Corpuscular Volume 91.3 fL (80-100); Monocytes Absolute Auto 600 /uL (0-900); Monocytes Percent Auto 8.1 % (3-14); Neutrophils Absolute Auto 4000 /uL (1500-7000); Neutrophils Percent Auto 54.4 % (50-75); Platelet Count 421 X10^3/uL (150-400); Red Blood Cell Count 3.84 X10^6/uL (4.0-5.2); White Blood Cell Count 7.3 X10^3/uL (4.5-11.0)
[2023-09-02 10:29] LABS: Calcium Urine Random 17.1 mg/dL
[2023-09-05 20:11] LABS: Free Kappa Lt Chains, Serum 21.6 mg/L (3.3-19.4); Free Lambda Lt Chains,Serum 27.6 mg/L (5.7-26.3)
[2023-09-08 20:17] LABS: Vitamin A 45.7 ug/dL (22.0-69.5)
== END ==
PROVIDERS: PCP Registered Nurse Diabetes Educator; Referring Provider Physician Assistant; Visit Provider Physician Assistant
DX: E83.52 Hypercalcemia (principal); M54.9 Dorsalgia, unspecified; G89.29 Other chronic pain
CPT/HCPCS: 36415; 82340; 83735; 83883; 84590; 85025

== ENCOUNTER → 2023-09-02 09:58 | Outpatient (CLI) | payer MEDICARE, OTHER, SELFPAY ==
--- NOTE | 2023-09-02 | DI.MG.S_ITS ---
BILATERAL DIGITAL SCREENING MAMMOGRAM 3D/2D WITH CAD: 09/02/2023 CLINICAL: Routine screening. Comparison is made to exams dated: 06/19/2018 mammogram, 06/02/2017 mammogram, and 04/07/2016 mammogram - [facility]. Both breasts are heterogeneously dense, which may obscure small masses (category c / 51-75% glandular tissue). Current study was also evaluated with a Computer Aided Detection (CAD) system. There are benign post operative findings in the right breast. No significant masses, calcifications, or other findings are seen in either breast. There has been no significant interval change. IMPRESSION: BENIGN There is no mammographic evidence of malignancy. A 1 year screening mammogram is recommended. Based on the Tyrer Cuzick model (a risk assessment model) the patient's lifetime risk is 3.7% and her 10 year risk is 0.0%. According to the ACR, ACS, and NCCN guidelines, an annual breast MRI exam along with mammogram is recommended if the patient's lifetime risk is 20% or greater. This exam was interpreted at Station ID: [id number]. NOTE: For mammograms, a report in lay terms will be sent to the patient. Approximately 15% of breast malignancies will not be visualized mammographically. In the management of a palpable breast mass, a negative mammogram must not discourage biopsy of a clinically suspicious lesion. Electronically Signed By: Emil dejesus/irving:09/04/2023 09:49:40 letter sent: Normal Exam ACR BI-RADS Category 2: Benign Finding(s) 3342F
== END ==
LOC: MAMMO 09:59
PROVIDERS: PCP Registered Nurse Diabetes Educator; Referring Provider Registered Nurse Diabetes Educator; Visit Provider Registered Nurse Diabetes Educator
DX: Z12.31 Encounter for screening mammogram for malignant neoplasm of breast (principal); R92.333 Mammographic heterogeneous density, bilateral breasts
CPT/HCPCS: 77063; 77067

== ENCOUNTER → 2023-11-08 07:07 | Outpatient (CLI) | payer MEDICARE, OTHER, SELFPAY ==
[2023-11-08 08:07] LABS: Hematocrit 37.4 % (36-46); Hemoglobin 12.2 g/dL (12.0-16.0); Mean Corpuscular HGB Conc 32.7 % (30-36); Mean Corpuscular Hemoglobin 30.5 PG (26-34); Mean Corpuscular Volume 93.5 fL (80-100); Platelet Count 288 X10^3/uL (150-400); Red Cell Distribution Width 16.7 % (11.6-14.8); White Blood Cell Count 5.5 X10^3/uL (4.5-11.0)
[2023-11-08 08:44] LABS: Alanine Aminotransferase 39 IU/L (<35); Albumin 3.8 g/dL (3.5-5.0); Albumin Globulin Ratio 1.8 (1.0-2.8); Alkaline Phosphatase 50 U/L (38-126); Aspartate Aminotransferase 38 IU/L (14-36); BUN Creatinine Ratio 16.4 (6-22); Bilirubin Total 0.5 mg/dL (0.2-1.3); Blood Urea Nitrogen 12 mg/dL (7-17); Calcium 9.3 mg/dL (8.4-10.2); Carbon Dioxide 26 mmol/L (22-32); Chloride 109 mmol/L (98-107); Cholesterol 122 mg/dL (140-199); Estimated Glomerular Filt Rate > 60 mL/min (>60); Globulin 2.1 g/dL (1.7-4.1); Glucose 101 mg/dL (80-110); HDL Cholesterol 65 mg/dL (40-60); HEMOLYSIS < 15 (0-50); LDL Cholesterol Calculated 45 mg/dL (<100); Potassium 4.3 mmol/L (3.4-5.1); Sodium 140 mmol/L (137-145); Total Protein 5.9 g/dL (6.3-8.2); Triglycerides 60 mg/dL (35-150)
== END ==
PROVIDERS: PCP Registered Nurse Diabetes Educator; Referring Provider Registered Nurse Diabetes Educator; Visit Provider Registered Nurse Diabetes Educator
DX: E78.5 Hyperlipidemia, unspecified (principal); E83.52 Hypercalcemia; M85.80 Other specified disorders of bone density and structure, unspecified site; M35.3 Polymyalgia rheumatica; Z79.899 Other long term (current) drug therapy; D58.2 Other hemoglobinopathies
CPT/HCPCS: 36415; 80053; 80061; 82330; 85027

== ENCOUNTER → 2024-10-31 08:17 | Outpatient (CLI) | payer MEDICARE, OTHER, SELFPAY ==
[2024-10-31 08:37] LABS: Hematocrit 40.6 % (36-46); Hemoglobin 13.3 g/dL (12.0-16.0); Mean Corpuscular HGB Conc 32.6 % (30-36); Mean Corpuscular Hemoglobin 30.4 PG (26-34); Mean Corpuscular Volume 93.1 fL (80-100); Platelet Count 332 X10^3/uL (150-400)
[2024-10-31 08:55] LABS: Alanine Aminotransferase 22 IU/L (<35); Albumin 4.1 g/dL (3.5-5.0); Albumin Globulin Ratio 1.8 (1.0-2.8); Alkaline Phosphatase 57 U/L (38-126); Blood Urea Nitrogen 14 mg/dL (7-17); Calcium 9.6 mg/dL (8.4-10.2); Carbon Dioxide 29 mmol/L (22-32); Chloride 105 mmol/L (98-107); Cholesterol 97 mg/dL (140-199); Estimated Glomerular Filt Rate > 60 mL/min (>60); Globulin 2.3 g/dL (1.7-4.1); Glucose 93 mg/dL (70-99); HDL Cholesterol 53 mg/dL (40-60); HEMOLYSIS < 15 (0-50); Potassium 4.3 mmol/L (3.4-5.1); Sodium 138 mmol/L (137-145); Total Protein 6.4 g/dL (6.3-8.2); Triglycerides 64 mg/dL (35-150)
== END ==
PROVIDERS: PCP Registered Nurse Diabetes Educator; Referring Provider Registered Nurse Diabetes Educator; Visit Provider Registered Nurse Diabetes Educator
DX: Z51.81 Encounter for therapeutic drug level monitoring (principal); E83.52 Hypercalcemia; E78.5 Hyperlipidemia, unspecified; I10 Essential (primary) hypertension
CPT/HCPCS: 36415; 80053; 80061; 85027

== ENCOUNTER → 2024-11-11 10:32 | Outpatient (CLI) | payer MEDICARE, OTHER, SELFPAY ==
--- NOTE | 2024-11-11 10:37 | DI.RAD.S_ITS ---
PROCEDURE: XR KNEE LT 3V INDICATIONS: eval L knee pain TECHNIQUE: 3 views of the left knee were acquired. COMPARISON: No prior x-ray left knee FINDINGS: Moderate to severe degenerative changes of the left knee with joint space narrowing, osteophytes most notably in the medial greater than lateral and patellofemoral compartments Kellgren Dago grade 3. Mild knee joint effusion. Mild osteopenia. Mild vascular calcifications posteriorly. No radiographic evidence of displaced fracture, dislocation or high attenuation soft tissue foreign body. IMPRESSION: Moderate to severe degenerative changes left knee. Dictated by: Jasmeet Cavanaugh M.D. on 11/11/2024 at 21:26 Approved by: Jasmeet Cavanaugh M.D. on 11/11/2024 at 21:28
--- NOTE | 2024-11-11 10:37 | DI.RAD.S_ITS ---
2PROCEDURE: XR WRIST RT MIN 4V INDICATIONS: eval pain R 1st MCP, R thumb, R wrist TECHNIQUE: Four views of the wrist were acquired. COMPARISON: None. FINDINGS: Moderate degenerative changes with joint space narrowing and osteophytes, of the right radiocarpal, intercarpal, triscaphe and 1st and 2nd carpal-metacarpal joints, 1st metacarpophalangeal joint partially imaged. No radiographic evidence of displaced fracture, dislocation or high attenuation soft tissue foreign body. IMPRESSION: Degenerative changes. If symptoms persist or worsen, or there is high clinical suspicion of right wrist/hand abnormality, MRI could be performed. Dictated by: Jasmeet Cavanaugh M.D. on 11/11/2024 at 21:42 Approved by: Jasmeet Cavanaugh M.D. on 11/11/2024 at 21:43
--- NOTE | 2024-11-11 10:37 | DI.RAD.S_ITS ---
2PROCEDURE: XR HAND RT MIN 3V INDICATIONS: eval pain R 1st MCP, R thumb, R wrist TECHNIQUE: 3 views of the right hand acquired. COMPARISON: None. FINDINGS: Moderate diffuse osteopenia. Bzxm-ic-zompekrx degenerative changes at the radiocarpal, 1st carpal-metacarpal, 1st and 2nd metacarpophalangeal and to a lesser degree the PIP and DIP joints of the thumb and fingers. Minimal periarticular low-attenuation at the PIP and DIP joints may be related to mild erosions versus subchondral cysts. No radiographic evidence of displaced fracture, dislocation or high attenuation soft tissue foreign body. IMPRESSION: Degenerative changes as discussed above. Dictated by: Jasmeet Cavanaugh M.D. on 11/11/2024 at 21:13 Approved by: Jasmeet Cavanaugh M.D. on 11/11/2024 at 21:15
== END ==
PROVIDERS: PCP Registered Nurse Diabetes Educator; Referring Provider Registered Nurse Diabetes Educator; Visit Provider Registered Nurse Diabetes Educator
DX: M79.641 Pain in right hand (principal); M25.531 Pain in right wrist; M25.562 Pain in left knee; M25.462 Effusion, left knee; G89.29 Other chronic pain
CPT/HCPCS: 73110; 73130; 73562

== ENCOUNTER → 2025-01-24 09:44 | Outpatient (CLI) | payer MEDICARE, OTHER, SELFPAY ==
--- NOTE | 2025-01-24 09:45 | DI.RAD.S_ITS ---
PROCEDURE: XR DEXA AXIAL SKELETON INDICATIONS: reeval COMPARISON: [facility], CR, XR DEXA AXIAL SKELETON, 08/18/2023, 11:05. [facility], CR, XR DEXA AXIAL SKELETON, 05/28/2021, 11:36. FINDINGS: Lumbar Spine: Bone mineral density 1.241 g/cm2, T score 1.7, no significant change compared to prior. Left Femoral Neck: Bone mineral density 0.552 g/cm2, T score -2.7. Left Hip: Bone mineral density 0.660 g/cm2, T score -2.3, decreased by 5%. Fracture Risk Calculation (when applicable): 10-year fracture risk of a major osteoporotic fracture 33 percent and of a hip fracture 16 percent. (T score greater or equal to -1.0 to: NORMAL) (T score from -1.1 to -2.4: OSTEOPENIA) (T score less than or equal to -2.5: OSTEOPOROSIS) IMPRESSION: Osteoporosis by WHO classification. Follow-up guidelines as follows: Osteoporosis: Consider a repeat DEXA and Vertebral Fracture Assessment (VFA) exam in 2 years or sooner if medically necessary, to reassess this patient's status. Osteopenia: Consider a repeat DEXA in 2-3 years to reassess this patient's status, or if there is a new clinical indication. Normal: Consider a repeat DEXA in 5 years or sooner, or if there is a new clinical indication. All treatment decisions require clinical judgment and consideration of individual patient factors, including patient preferences, comorbidities, previous drug use, risk factors not captured in the FRAX model (e.g., frailty, falls, vitamin D deficiency, increased bone turnover, interval significant decline in bone density ) and possible under- or over-estimation of fracture risk by FRAX. In addition, the NOF Guide recommends that FDA-approved medical therapies be considered in postmenopausal women and men age >= 50 years with a: * Hip or vertebral (clinical or morphometric) fracture * T-score of <=-2.5 at the spine or hip * Ten-year fracture probability by FRAX of >= 3% for hip fracture or >=20% for major osteoporotic fracture. Dictated by: Curtis Chung M.D. on 01/24/2025 at 15:26 Approved by: Curtis Chung M.D. on 01/24/2025 at 15:27
== END ==
LOC: RAD 09:45
PROVIDERS: PCP Registered Nurse Diabetes Educator; Referring Provider Registered Nurse Diabetes Educator; Visit Provider Registered Nurse Diabetes Educator
DX: M81.0 Age-related osteoporosis without current pathological fracture (principal); M85.89 Other specified disorders of bone density and structure, multiple sites; Z91.89 Other specified personal risk factors, not elsewhere classified
CPT/HCPCS: 77080

== ENCOUNTER → 2025-02-03 09:12 | Outpatient (CLI) | payer MEDICARE, OTHER, SELFPAY ==
[2025-02-03 10:09] LABS: Alanine Aminotransferase 29 IU/L (<35); Albumin 3.9 g/dL (3.5-5.0); Albumin Globulin Ratio 1.6 (1.0-2.8); Alkaline Phosphatase 55 U/L (38-126); Blood Urea Nitrogen 15 mg/dL (7-17); Calcium 9.8 mg/dL (8.4-10.2); Carbon Dioxide 28 mmol/L (22-32); Chloride 105 mmol/L (98-107); Cholesterol 120 mg/dL (140-199); Estimated Glomerular Filt Rate > 60 mL/min (>60); Globulin 2.5 g/dL (1.7-4.1); Glucose 96 mg/dL (70-99); HDL Cholesterol 62 mg/dL (40-60); HEMOLYSIS < 15 (0-50); Potassium 4.1 mmol/L (3.4-5.1); Sodium 140 mmol/L (137-145); Total Protein 6.4 g/dL (6.3-8.2); Triglycerides 70 mg/dL (35-150)
== END ==
PROVIDERS: PCP Registered Nurse Diabetes Educator; Referring Provider Registered Nurse Diabetes Educator; Visit Provider Registered Nurse Diabetes Educator
DX: E78.5 Hyperlipidemia, unspecified (principal); M85.80 Other specified disorders of bone density and structure, unspecified site; Z91.89 Other specified personal risk factors, not elsewhere classified
CPT/HCPCS: 36415; 80053; 80061

== ENCOUNTER → 2025-02-21 12:00 | Outpatient (CLI) | payer MEDICARE, OTHER, SELFPAY ==
--- NOTE | 2025-02-21 12:01 | DI.MRI.S_ITS ---
PROCEDURE: MR WRIST RT WO CON
== END ==
LOC: MRI 12:01
PROVIDERS: PCP Registered Nurse Diabetes Educator; Referring Provider Registered Nurse Diabetes Educator; Visit Provider Registered Nurse Diabetes Educator
DX: S63.591A Other specified sprain of right wrist, initial encounter (principal); M65.931 Unspecified synovitis and tenosynovitis, right forearm; S56.511A Strain of other extensor muscle, fascia and tendon at forearm level, right arm, initial encounter; M67.431 Ganglion, right wrist; M25.531 Pain in right wrist
CPT/HCPCS: 73221